=== PATIENT | male | born 1965 | race Caucasian/White ===

== ENCOUNTER 2020-01-13 00:17 | Day surgery (SDC) | payer MEDICARE, SELFPAY ==
[2020-01-04 13:04] VITALS: BMI 34.9
--- NOTE | 2020-01-12 14:07 | WPDANESEPPF ---
Anes - Initial Pre Proc Eval Procedure: Operation Date: 01/13/20 09:00 Proposed Procedures p Right Knee Arthroscopy With Lateral Meniscectomy - Ricardo Arias MD Date/Time: 01/12/20 14:07 Surgeon: Ricardo Arias MD Pre Op Diagnosis: Right Knee Lateral Meniscus Tear Patient Data Age: 54 Gender: M Height: 6 ft Weight: 117.03 kg Allergies Allergy/AdvReac Type Severity Reaction Status Date / Time No Known Allergies Allergy Verified 01/04/20 13:05 Home Medications Medication Instructions Recorded Confirmed Type aspirin 81 mg tablet,delayed 81 mg PO DAILY 12/15/19 01/04/20 History release gabapentin 800 mg tablet 800 mg PO TID 12/15/19 01/04/20 History Unknown Inhaler 2 puff INHALATION BID 01/04/20 History albuterol sulfate 1 inh INHALATION Q4H PRN 01/04/20 01/04/20 History atorvastatin 80 mg PO DAILY 01/04/20 01/04/20 History cetirizine [Zyrtec] 10 mg PO DAILY 01/04/20 01/04/20 History clopidogrel 75 mg PO DAILY 01/04/20 01/04/20 History fluticasone propionate 2 spray INTRANASAL BID 01/04/20 01/04/20 History galcanezumab-gnlm [Emgality Pen] mg SUBCUT MONTHLY 01/04/20 History hydrocodone-acetaminophen 1 tablet PO DIRECTED PRN 01/04/20 01/04/20 History lisinopril 2.5 mg PO DAILY 01/04/20 01/04/20 History metformin 500 mg PO BID 01/04/20 01/04/20 History pantoprazole 40 mg PO BID 01/04/20 01/04/20 History Patient hx anesthesia problems: none Family hx anesthesia problems: none PMFSH Past Medical History Medical History (Updated 01/12/20 @ 14:06 by Aureliano Somers MD) GERD (gastroesophageal reflux disease) Hyperlipidemia SHELLEY (obstructive sleep apnea) Right knee pain Tear of meniscus of right knee Surgical History Surgical History (Updated 01/12/20 @ 14:06 by Aureliano Somers MD) AICD (automatic cardioverter/defibrillator) present S/P CABG (coronary artery bypass graft) Social History Social History Smoking status: Former smoker Alcohol intake: current Anes - Eval Final PreProcedure Day of Procedure 01/12/20 14:07 Patient weight: obese Heart: regular rate and rhythm Lungs: clear to auscultation Airway: Mallampati scale class III Neurological: alert and oriented Last oral intake: 2 hours ASA classification: IV Emergent: no Anesthetic plan: proceed Anesthesia type and monitoring: general LMA and standard monitoring Informed Consent: The patient's anesthetic plan and its attendant risks and benefits were discussed with the patient/family/POA. Questions were solicited and answers provided to the satisfaction of the patient/family/POA.
[2020-01-13] VITALS (7 sets, daily range): BP systolic 122–136; BP diastolic 79–89; PULSE 56–74; RESP 15–19; TEMP 36.3–36.8; O2SAT 97–100
--- NOTE | 2020-01-13 07:34 | WPDHPUPDATE1 ---
History and Physical Update Update Date/Time: 01/13/20 07:34 History and Physical has been reviewed, including an updated exam of the patient. There are NO changes in the patient's condition. Risks, benefits, and alternatives have been discussed and questions answered. Patient agrees to proceed with procedure.
[2020-01-13] MEDS: CELECOXIB 200 MG CAPSULE PO (08:55)
[2020-01-13] MEDS: LACTATED RINGERS 1,000 ML 30 ML IV CONT (09:05)
[2020-01-13 09:09] LABS: Glucose Point of Care 135 (65-105)
[2020-01-13] MEDS: ceFAZolin 2 GM/D5W 50 ML 2 GM/50 ML BAG IVPB (09:48)
[2020-01-13] MEDS: IBUPROFEN IV 800 MG/200 ML 800 MG/200 ML BAG 400 MG IVPB (10:16)
--- NOTE | 2020-01-13 10:56 | PM.OP ---
Procedure Note - Brief Procedure Note - Brief Date of procedure: 01/13/20 Pre-op diagnosis: Right Knee Lateral Meniscus Tear Procedure performed: R KNEE SCOPE Anesthesia: GETA Surgeon: Ricardo Arias MD Estimated blood loss (mL): 5 Complications: No immediate complications Condition: stable Disposition: PACU
--- NOTE | 2020-01-13 11:33 | SUR.PREOP ---
0915-PT STATES STICK WENT INTO LEFT EYE ON 01/11/2020, RECEIVED NO MEDICAL ATTENTION. 0920-DDR. DIETZ AWARE OF ABOVE. 0945-DR. SANTANA AWARE OF ABOVE.
--- NOTE | 2020-01-13 12:49 | OP_ITS ---
DATE OF PROCEDURE: 01/13/2020 PREOPERATIVE DIAGNOSIS: Right knee lateral meniscus tear. POSTOPERATIVE DIAGNOSIS: Right knee lateral meniscus tear. PROCEDURE: Right knee arthroscopy with minor synovectomy. ANESTHESIA: General. COMPLICATIONS: None. INDICATIONS: This is a 54-year-old gentleman who had right knee pain, which was attributed to left lateral meniscus tear, which was seen on MRI. He was indicated for right knee arthroscopy. DESCRIPTION OF PROCEDURE: The patient was taken to the operating room in stable condition and placed in the supine position. General anesthesia was induced and the right lower extremity was prepped and draped sterilely from the toes to the thigh. Superomedial portal used for an outflow cannula. Inferolateral port was used for the camera. The camera was introduced. There was no chondromalacia to the patellar to the trochlea. There was some synovitis in Hoffa synovium, which was impinging on the trochlea with the flexion. The medial compartment was entered. There was some chondromalacia of the medial femoral condyle. This was debrided with a shaver. After a medial portal was established, the meniscus was examined. There was no tear of the medial meniscus. The intercondylar notch was entered. The ACL was intact. The lateral compartment was entered. There was a complex tear of the lateral meniscus. This was debrided with a shaver and with a biter until there was a smooth contoured meniscus. There was minimal chondromalacia to the lateral femoral condyle and this was debrided with a shaver. Next, synovitis was resected in the Hoffa synovium. The wounds were approximated with 4-0 nylon suture. Sterile dressing was applied. The patient was extubated. Mahad I MT: Tab
[2020-01-13 13:15] LABS: Glucose Point of Care 146 (65-105)
== END 2020-01-13 12:50 | disposition home or self-care (01) ==
PROVIDERS: PCP Family Medicine; Visit Provider Orthopaedic Surgery
PROC: (CPT 29870; principal; 2020-01-13 09:00)
DX: M23.361 Other meniscus derangements, other lateral meniscus, right knee (principal); E78.5 Hyperlipidemia, unspecified; G47.33 Obstructive sleep apnea (adult) (pediatric); K21.9 Gastro-esophageal reflux disease without esophagitis; Z79.82 Long term (current) use of aspirin; Z79.84 Long term (current) use of oral hypoglycemic drugs; Z79.02 Long term (current) use of antithrombotics/antiplatelets; Z95.810 Presence of automatic (implantable) cardiac defibrillator; Z95.1 Presence of aortocoronary bypass graft; Z87.891 Personal history of nicotine dependence
CPT/HCPCS: 29881; A9270; J0690; J1100; J1741; J2250; J2405; J2704; J3010; J7120